=== PATIENT | male | born 1940 | race Caucasian/White ===

== ENCOUNTER → 2018-10-17 08:35 | Outpatient (CLI) | payer MEDICARE, OTHER, SELFPAY ==
[2018-10-17 09:47] LABS: Hematocrit 44.4 % (41-53); Hemoglobin 15.6 g/dL (13.5-17.5)
[2018-10-17 11:53] LABS: Blood Urea Nitrogen 12 mg/dL (9-20); Calcium 8.7 mg/dL (8.4-10.2); Carbon Dioxide 26 mmol/L (22-32); Chloride 102 mmol/L (98-107); Estimated Glomerular Filt Rate > 60.0 mL/min (>60); Glucose 118 mg/dL (80-110); HEMOLYSIS < 15 (0-50); Potassium 3.9 mmol/L (3.4-5.1); Sodium 138 mmol/L (137-145)
[2018-10-17 12:37] LABS: Vitamin D 25 Hydroxy (D3) 51.4 ng/mL (30.0-100.0)
== END ==
PROVIDERS: PCP Student in an Organized Health Care Education/Training Program; Visit Provider Student in an Organized Health Care Education/Training Program
DX: I10 Essential (primary) hypertension (principal); E55.9 Vitamin D deficiency, unspecified; I47.1 Supraventricular tachycardia
CPT/HCPCS: 36415; 80048; 82306; 85014; 85018

== ENCOUNTER → 2019-12-11 09:20 | Outpatient (CLI) | payer MEDICARE, OTHER, SELFPAY ==
[2019-12-11 10:44] LABS: BUN Creatinine Ratio 14.5 (6-22); Blood Urea Nitrogen 10 mg/dL (9-20); Carbon Dioxide 28 mmol/L (22-32); Chloride 100 mmol/L (98-107); Estimated Glomerular Filt Rate > 60.0 mL/min (>60); Glucose 121 mg/dL (80-110); HEMOLYSIS < 15 (0-50); Sodium 137 mmol/L (137-145)
[2019-12-11 10:51] LABS: Vitamin D 25 Hydroxy (D3) 62.1 ng/mL (30.0-100.0)
== END ==
PROVIDERS: PCP Student in an Organized Health Care Education/Training Program; Referring Provider Student in an Organized Health Care Education/Training Program; Visit Provider Student in an Organized Health Care Education/Training Program
DX: E55.9 Vitamin D deficiency, unspecified (principal); I10 Essential (primary) hypertension
CPT/HCPCS: 36415; 80048; 82306

== ENCOUNTER → 2020-01-30 08:59 | Outpatient (CLI) | payer MEDICARE, OTHER, SELFPAY ==
--- NOTE | 2020-01-30 | DI.RAD.S_ITS ---
PROCEDURE: XR LUMBAR SPINE 2-3V INDICATIONS: CHRONIC NECK PAIN AND BACK PAIN TECHNIQUE: 2 views of the lumbar spine were acquired. COMPARISON: [facility], , L-SPINE 2-3 VIEWS, 04/22/2014, 14:17. FINDINGS: Bones: No fracture or focal osseous destruction. Multilevel degenerative endplate sclerosis and spurring. Diffuse facet arthropathy. Straightening of the normal lordotic curvature. Grade 1 retrolisthesis of L2 on L3. Trace anterolisthesis of L4 on L5. Severe diffuse narrowing of the lumbar disc spaces with relative sparing at L1-L2. Scattered vascular calcifications present in the aorta. Dextroscoliosis noted centered at L2. Soft tissues: Overlying bowel gas pattern is normal. No suspicious soft tissue calcifications. IMPRESSION: Interval progression in diffuse lumbar spondylosis since 04/22/14. Dextrocurvature as before Dictated by: Kamar Sims M.D. on 01/30/2020 at 11:13 Approved by: Kamar Sims M.D. on 01/30/2020 at 11:15
--- NOTE | 2020-01-30 | DI.RAD.S_ITS ---
PROCEDURE: XR THORACIC SPINE 2V INDICATIONS: CHRONIC BACK PAIN TECHNIQUE: 2 views of the thoracic spine were acquired. COMPARISON: [facility], , THORACIC SPINE 3 VIEWS, 04/22/2014, 14:17. FINDINGS: Bones: No fractures or dislocations. No suspicious bony lesions. Multilevel degenerative endplate sclerosis and spurring. Diffuse facet arthropathy. Mild levocurvature of the lower thoracic spine. Soft tissues: No paravertebral stripe thickening. IMPRESSION: Diffuse thoracic degenerative changes and mild levocurvature. No interval progression since 04/22/14 Dictated by: Kamar Sims M.D. on 01/30/2020 at 11:12 Approved by: Kamar Sims M.D. on 01/30/2020 at 11:13
--- NOTE | 2020-01-30 | DI.RAD.S_ITS ---
PROCEDURE: XR CERVICAL SPINE 2V OR 3V INDICATIONS: CHRONIC NECK PAIN TECHNIQUE: 3 view(s) of the cervical spine were acquired. COMPARISON: [facility], , CERVICAL SPINE 2 OR 3 VIEWS, 04/22/2014, 14:17. FINDINGS: Bones: No fracture identified. Straightening of the normal lordotic curvature. Severe narrowing of the C4-C5 and C5-C6 disc spaces. Multilevel degenerative endplate sclerosis and spurring. Diffuse facet arthropathy. Grade 1 retrolisthesis of C4 on C5. Lateral curvature of the visualized cervical spine. Soft tissues: No prevertebral soft tissue swelling. IMPRESSION: Interval progression of multilevel cervical spondylosis most pronounced at C4-C5 and C5-C6. Diffuse facet arthropathy Straightening of the normal lordotic curvature. Dictated by: Kamar Sims M.D. on 01/30/2020 at 11:15 Approved by: Kamar Sims M.D. on 01/30/2020 at 11:17
== END ==
PROVIDERS: PCP Student in an Organized Health Care Education/Training Program; Referring Provider Chiropractor; Visit Provider Chiropractor
DX: M54.2 Cervicalgia (principal); M54.9 Dorsalgia, unspecified; M47.814 Spondylosis without myelopathy or radiculopathy, thoracic region; M47.816 Spondylosis without myelopathy or radiculopathy, lumbar region; M47.812 Spondylosis without myelopathy or radiculopathy, cervical region; G89.29 Other chronic pain
CPT/HCPCS: 72040; 72070; 72100

== ENCOUNTER → 2020-12-15 09:48 | Outpatient (CLI) | payer MEDICARE, OTHER, SELFPAY ==
--- NOTE | 2020-12-15 09:53 | DI.RAD.S_ITS ---
PROCEDURE: XR CERVICAL SPINE 2V OR 3V INDICATIONS: DJD of the neck, worsening right hand parasthesia TECHNIQUE: 3 view(s) of the cervical spine were acquired. COMPARISON: [facility], , XR CERVICAL SPINE 2V OR 3V, 01/30/2020, 9:00. FINDINGS: Bones: Vertebral body height and bone mineralization is maintained. Craniovertebral relationships normal. There is severe joint space narrowing and degenerative endplate changes noted at C 4 5 and C5-6 with associated arthropathy and straightening of the normal cervical lordosis. Minimal retrolisthesis noted at these levels as well, similar prior. Moderate disc space narrowing persists at C6-7 and C7-T1 Soft tissues: No prevertebral soft tissue swelling. IMPRESSION: Stable multilevel degenerative disc disease and arthropathy, most pronounced at C4-5 and C5-6 Dictated by: Derek Kendrick M.D. on 12/15/2020 at 11:30 Approved by: Derek Kendrick M.D. on 12/15/2020 at 11:33
[2020-12-15 10:42] LABS: BUN Creatinine Ratio 15.1 (6-22); Blood Urea Nitrogen 13 mg/dL (9-20); Carbon Dioxide 31 mmol/L (22-32); Chloride 101 mmol/L (98-107); Estimated Glomerular Filt Rate > 60.0 mL/min (>60); Glucose 126 mg/dL (80-110); HEMOLYSIS < 15 (0-50); Potassium 3.9 mmol/L (3.4-5.1); Sodium 137 mmol/L (137-145)
== END ==
PROVIDERS: PCP Student in an Organized Health Care Education/Training Program; Referring Provider Student in an Organized Health Care Education/Training Program; Visit Provider Student in an Organized Health Care Education/Training Program
DX: M47.812 Spondylosis without myelopathy or radiculopathy, cervical region (principal); R20.0 Anesthesia of skin; I10 Essential (primary) hypertension
CPT/HCPCS: 36415; 72040; 80048

== ENCOUNTER → 2021-03-20 08:27 | Outpatient (CLI) | payer MEDICARE, OTHER, SELFPAY ==
[2021-03-20 09:46] LABS: Cholesterol 160 mg/dL (140-199); HDL Cholesterol 54 mg/dL (40-60); LDL Cholesterol Calculated 92 mg/dL (<100); Triglycerides 68 mg/dL (35-150)
== END ==
PROVIDERS: PCP Student in an Organized Health Care Education/Training Program; Referring Provider Internal Medicine Cardiovascular Disease; Visit Provider Internal Medicine Cardiovascular Disease
DX: E78.5 Hyperlipidemia, unspecified (principal)
CPT/HCPCS: 36415; 80061

== ENCOUNTER → 2021-12-14 10:53 | Outpatient (CLI) | payer MEDICARE, OTHER, SELFPAY ==
[2021-12-14 12:30] LABS: Alanine Aminotransferase 25 IU/L (<50); Albumin 4.2 g/dL (3.5-5.0); Albumin Globulin Ratio 1.6 (1.0-2.8); Alkaline Phosphatase 85 U/L (38-126); Aspartate Aminotransferase 29 IU/L (17-59); BUN Creatinine Ratio 15.3 (6-22); Bilirubin Total 0.6 mg/dL (0.2-1.3); Blood Urea Nitrogen 13 mg/dL (9-20); Calcium 8.8 mg/dL (8.4-10.2); Carbon Dioxide 30 mmol/L (22-32); Chloride 104 mmol/L (98-107); Cholesterol 172 mg/dL (140-199); Estimated Glomerular Filt Rate > 60 mL/min (>60); Globulin 2.7 g/dL (1.7-4.1); Glucose 119 mg/dL (80-110); HDL Cholesterol 58 mg/dL (40-60); HEMOLYSIS < 15 (0-50); LDL Cholesterol Calculated 104 mg/dL (<100); Potassium 3.9 mmol/L (3.4-5.1); Sodium 138 mmol/L (137-145); Total Protein 6.9 g/dL (6.3-8.2); Triglycerides 50 mg/dL (35-150)
== END ==
PROVIDERS: PCP Student in an Organized Health Care Education/Training Program; Referring Provider Internal Medicine Cardiovascular Disease; Visit Provider Internal Medicine Cardiovascular Disease
DX: E78.5 Hyperlipidemia, unspecified (principal)
CPT/HCPCS: 36415; 80053; 80061

== ENCOUNTER → 2022-11-10 13:09 | Outpatient (CLI) | payer MEDICARE, OTHER, SELFPAY ==
--- NOTE | 2022-11-10 13:12 | DI.MRI.S_ITS ---
PROCEDURE: MR CERVICAL SPINE WO CON INDICATIONS: Radiculopathy, cervical region TECHNIQUE: Noncontrast sagittal T1 spin echo and T2 fast spin echo, sagittal STIR, foraminal oblique sagittal T2 fast spin echo, and axial gradient echo or T2 fast spin echo through the cervical spine. COMPARISON: [facility], CR, XR CERVICAL SPINE WITH OBLIQUES, 11/02/2022, 9:56. FINDINGS: Image quality: Excellent. Alignment and Curvature: There is minimal anterolisthesis at the C2-C3 level. There is minimal retrolisthesis at C4-C5 and C5-C6. Bone Marrow: Marrow demonstrates normal overall signal. Spinal Cord: There is increased T2 weighted signal seen focally at C4-C5 and C5-C6. Visualized spinal cord has normal size. No cerebellar tonsillar herniation. Paraspinous Soft Tissues: No paravertebral masses. Prevertebral soft tissues are normal in thickness. C2-C3: Moderate loss of disc height is seen. Loss of disc signal is seen. Reactive marrow endplate changes are seen, which are hyperintense on T1-weighted and T2-weighted imaging and most consistent with fatty metaplasia (Modic type II changes). Moderate generalized disc osteophyte complex is seen. There is mild right-sided and moderate left-sided facet hypertrophy at least moderate bilateral neural foraminal narrowing is seen. Mild to moderate central canal narrowing is seen. C3-C4: Mild loss of disc height is seen. Loss of disc signal is seen. Moderate generalized disc osteophyte complex is seen. There is mild right-sided and prominent left-sided facet hypertrophy. There is severe left-sided and moderate to severe right-sided neural foraminal narrowing. Moderate to severe central canal narrowing is seen, with associated ventral cord flattening. C4-C5: There is at least moderate loss of disc height and disc signal. Reactive marrow endplate changes are seen which are hypointense on T1-weighted imaging and hyperintense on T2 weighted imaging, which is most consistent with edema (Modic type I changes). At least moderate disc osteophyte complex is seen. There is a central disc osteophyte protrusion, with inferior migration of mild disc extrusion. There is a likely disc osteophyte protrusion within the right foraminal region, as on series 4, image 23. At least moderate facet hypertrophy can be seen. There is severe right-sided and moderate to severe left-sided neural foraminal narrowing. Severe central canal narrowing is seen, with associated mass effect upon the ventral spinal cord. C5-C6: Moderate to severe loss of disc height and disc signal can be seen. Reactive marrow endplate changes are seen which are hypointense on T1-weighted imaging and hyperintense on T2 weighted imaging, which is most consistent with edema (Modic type I changes). At least moderate disc osteophyte complex is seen, with a central/right disc osteophyte protrusion. Extruded disc material can be seen inferiorly. There is at least moderate bilateral facet hypertrophy. Moderate to severe bilateral neural foraminal narrowing can be seen. There is severe central canal narrowing, with associated cord flattening, as on series 4, image 26. C6-C7: At least moderate loss of disc height and disc signal can be seen. At least moderate disc osteophyte complex is seen, with a central disc osteophyte protrusion. Moderate facet joint hypertrophy is seen. Moderate to severe bilateral neural foraminal narrowing can be seen. At least moderate central canal narrowing is seen at this level. C7-T1: At least moderate loss of disc height and disc signal is seen. Moderate generalized disc osteophyte complex is seen. Mild to moderate facet hypertrophy is seen. There is moderate to severe left-sided and moderate right-sided neural foraminal narrowing. No central canal narrowing is seen. IMPRESSION: Multiple levels of significant cervical spine degenerative change can be seen, which are worst at C4-C5 and C5-C6. 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 Dictated by: Rafiq Martinez M.D. on 11/10/2022 at 14:53 Approved by: Rafiq Martinez M.D. on 11/10/2022 at 14:59
== END ==
PROVIDERS: PCP Student in an Organized Health Care Education/Training Program; Referring Provider Physical Medicine & Rehabilitation Pain Medicine; Visit Provider Physical Medicine & Rehabilitation Pain Medicine
DX: M47.22 Other spondylosis with radiculopathy, cervical region
CPT/HCPCS: 72141

== ENCOUNTER → 2023-02-14 10:21 | Outpatient (CLI) | payer MEDICARE, OTHER, SELFPAY ==
--- NOTE | 2023-02-14 | DI.CT.S_ITS ---
PROCEDURE: CT CERVICAL SPINE WO CON INDICATIONS: CERVICAL DISC DISORDER TECHNIQUE: Noncontrast 3 mm thick sections acquired from the skull base to the T4 level. Sagittal and coronal reformats were then constructed. For radiation dose reduction, the following was used: automated exposure control, adjustment of mA and/or kV according to patient size. COMPARISON: None. FINDINGS: Image quality: Excellent. Vertebral body height is preserved. No evidence of fracture. There is reversal normal cervical lordosis. Normal bone mineralization present. Craniovertebral relationships are normal. Grade 1 retrolisthesis noted at C4-5. Diffuse disc space narrowing and hypertrophic facet joints noted throughout the exam. At C2-3, disc space narrowing posterior disc osteophyte complex results in mild central and moderate bilateral foraminal stenosis At C3-4, hypertrophic facet and uncovertebral joints results in severe bilateral foraminal stenosis. Mild to moderate central stenosis. At C4-5, posterior osteophyte, hypertrophic facet and uncovertebral joints results in moderate central and severe bilateral foraminal stenosis. At C5-6, disc space narrowing with posterior osteophyte as well as hypertrophic facet and uncovertebral joints results in severe central and severe bilateral foraminal stenosis. At C6-7, disc space narrowing and hypertrophic uncovertebral joints results in moderate central stenosis. Severe bilateral foraminal stenosis. At C7-T1, disc space narrowing hypertrophic facet joints present. No central stenosis. Moderate bilateral foraminal stenosis IMPRESSION: 1. Multilevel degenerative disc disease and arthropathy results in varying degrees of central and foraminal stenosis including severe central and bilateral foraminal stenosis C5-6 Approved by: Derek Kendrick M.D. on 02/14/2023 at 17:15
== END ==
PROVIDERS: PCP Internal Medicine; Referring Provider Orthopaedic Surgery Orthopaedic Surgery of the Spine; Visit Provider Orthopaedic Surgery Orthopaedic Surgery of the Spine
DX: M50.022 Cervical disc disorder at C5-C6 level with myelopathy (principal); M50.122 Cervical disc disorder at C5-C6 level with radiculopathy; M48.02 Spinal stenosis, cervical region; G95.9 Disease of spinal cord, unspecified
CPT/HCPCS: 72125

== ENCOUNTER → 2023-02-24 08:47 | Outpatient (CLI) | payer MEDICARE, OTHER, SELFPAY ==
[2023-02-24 10:30] LABS: Add Manual Diff / Slide Review NO; Basophils Absolute Auto 0 /uL (0-100); Basophils Percent Auto 0.6 % (0-2); Eosinophils Absolute Auto 200 /uL (0-450); Eosinophils Percent Auto 2.6 % (2-4); Hematocrit 41.1 % (41-53); Hemoglobin 14.7 g/dL (13.5-17.5); Lymphocytes Absolute Auto 1500 /uL (1100-4500); Lymphocytes Percent Auto 22.3 % (25-40); Mean Corpuscular HGB Conc 35.8 % (30-36); Mean Corpuscular Volume 95.1 fL (80-100); Monocytes Absolute Auto 600 /uL (0-900); Monocytes Percent Auto 8.4 % (3-14); Neutrophils Absolute Auto 4400 /uL (1500-7000); Neutrophils Percent Auto 66.1 % (50-75); Platelet Count 254 X10^3/uL (150-400); Red Blood Cell Count 4.32 X10^6/uL (4.5-5.9); Red Cell Distribution Width 12.3 % (11.6-14.8); White Blood Cell Count 6.6 X10^3/uL (4.5-11.0)
[2023-02-24 10:37] LABS: Hemoglobin A1C% w Est Avg Glu 5.5 % (4.0-6.0)
[2023-02-24 10:49] LABS: BUN Creatinine Ratio 18.3 (6-22); Blood Urea Nitrogen 15 mg/dL (9-20); Calcium 8.9 mg/dL (8.4-10.2); Carbon Dioxide 28 mmol/L (22-32); Chloride 103 mmol/L (98-107); Estimated Glomerular Filt Rate > 60 mL/min (>60); Glucose 117 mg/dL (80-110); HEMOLYSIS 27 (0-50); Potassium 4.1 mmol/L (3.4-5.1); Sodium 137 mmol/L (137-145)
[2023-02-24 11:01] LABS: Vitamin D 25 Hydroxy (D3) > 126 ng/mL (30.0-100.0)
[2023-02-24 11:30] LABS: Vitamin B12 329 pg/mL (239-931)
== END ==
PROVIDERS: PCP Internal Medicine; Referring Provider Orthopaedic Surgery Orthopaedic Surgery of the Spine; Visit Provider Orthopaedic Surgery Orthopaedic Surgery of the Spine
DX: R73.9 Hyperglycemia, unspecified (principal); Z01.812 Encounter for preprocedural laboratory examination; E78.2 Mixed hyperlipidemia; I10 Essential (primary) hypertension; I47.1 Supraventricular tachycardia; Z01.818 Encounter for other preprocedural examination; E56.9 Vitamin deficiency, unspecified
CPT/HCPCS: 36415; 80048; 82306; 82607; 83036; 85025

== ENCOUNTER 2023-03-28 10:18 | Inpatient (IN) | payer MEDICARE, OTHER, SELFPAY ==
[2023-03-02 08:59] VITALS: BMI 24.3
[2023-03-28] VITALS (11 sets, daily range): BP systolic 124–166; BP diastolic 60–93; PULSE 51–101; RESP 10–17; TEMP 36.1–36.4; O2SAT 92–99; BMI 24.3
--- NOTE | 2023-03-28 11:10 | PM.PREOP ---
Pre-operative Note COVID-19 Criteria for continued procedure: Expected advancement of disease process, Possibility delay results in more complex future surgery or treatment, Increased loss of function, Continuing or worsening of significant or severe pain, Deterioration of the patient's condition or overall health and Delay expected to result in less-positive ultimate med/surg outcome Interval Note History & Physical reviewed/Exam performed by Physician: Yes Changes to H&P: No
[2023-03-28] MEDS: ACETAMINOPHEN 325 MG TABLET 650 MG PO (11:14)
[2023-03-28] MEDS: LACTATED RINGERS 1,000 ML 120 ML IV ×2 (11:15→12:35)
[2023-03-28] MEDS: CEFAZOLIN 2 GM/100 ML PREMIX 100 ML IV ×2 (11:45→20:18)
--- NOTE | 2023-03-28 12:04 | SUR.OPER ---
Supine on padded OR bed, head on gel donut, arms padded and papoosed, legs uncrossed, safety belt at thigh, tape over blanket over lower legs, legs under pillows, gel pad between feet.
[2023-03-28] MEDS: BUPIVACAINE 0.25% (PF) 10 ML, EPINEPHrine 0.15 MG INJ (12:11)
--- NOTE | 2023-03-28 13:43 | DI.RAD.S_ITS ---
PROCEDURE: XR CERVICAL SPINE 2V OR 3V INDICATIONS: C4-5. C5-6 ACDF TECHNIQUE: 2 spot fluoroscopic intraoperative images of the cervical spine were acquired. COMPARISON: [facility], CT, CT CERVICAL SPINE WO CON, 02/14/2023, 10:48. [facility], CR, XR CERVICAL SPINE 2V OR 3V, 12/15/2020, 9:54. [facility], CR, XR CERVICAL SPINE 2V OR 3V, 01/30/2020, 9:00. FINDINGS: Spot fluoroscopic images demonstrate postsurgical changes from anterior cervical disc fusion at C4-5 through C5-6 with anterior metal plate and screws and disc spacers. Hardware is in expected positions. IMPRESSION: Expected immediate postoperative appearance from ACDF at C4 through C6. Approved by: Demetri Benavides M.D. on 03/28/2023 at 14:36
--- NOTE | 2023-03-28 13:50 | P.OP_ITS ---
Operative Date/Time/Diagnoses Date of procedure: 03/28/23 Time of procedure: 11:30 Pre-op diagnosis: 1. C4-5, C5-6 spinal stenosis 2. 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 C4-5, C5-6 anterior cervical diskectomy and fusion 2. C4-5, C5-6 anterior interbody cage placement 3. C4-5, C5-6 anterior instrumentation with plate and screw placement in C4, C5 -C6 vertebrae 4. Utilization of microsurgical technique and operating microscope Same procedure as scheduled: Yes Indications: Patient has been having chronic neck pain and worsening cervical radiculopathy and myelopathy. Patient failed multiple conservative management with worsening pain weakness and numbness in his upper extremity. Patient has been having difficulty performing activity of daily living. After discussing risks benefits of treatment options, patient elected proceed with surgery. Surgeon: Amari Yung Circus Roustabout: Ana Riley Click Yes if Unassisted: No Anesthesia Type: General Operative Notes Closure Type: primary Specimen(s): none sent Prosthetic devices, grafts, tissues, transplants, or devices: Globus Extend Plate, Hedron C cages Estimated Blood Loss (mL): 5 Blood products transfused: none Procedure in detail: Patient was seen in the preoperative area. Risks and benefits of the surgery was discussed with the patient. Operative consent was obtained and placed in the chart. Patient was then taken to the operative room. Prophylactic antibiotic was given less than 0.5 hr prior to skin incision. General anesthesia was administered. Patient was placed into a supine position on her radiolucent table. Bilateral shoulders were taped down to allow proper C-arm imaging. Anterior cervical area was prepped and draped in a sterile fashion. Time-out was performed at this time. Using lateral C-arm imaging, the level between C4 and C6 was identified and marked on patient's neck. A oblique incision from midline towards medial border of sternocleidomastoid muscle was made. The platysma muscle was incised in line with skin incision. Metzenbaum scissor was used to develop the plane between the medial border of sternocleidomastoid and the strap muscles medially. The carotid sheath and its contents were identified and protected behind the hand-held retractor during the entire case. The plane between the carotid sheath and strap muscles was developed with Metzenbaum scissors. Dissection was made down to the level of the anterior cervical fascia. Longus colli muscle was incised on the anterior aspect of vertebral bodies bilaterally from C4-6. Spinal needle was placed into the C5-6 disc space and confirmed with lateral C-arm imaging. Using microsurgical technique and operative microscope, anterior cervical diskectomy was performed at C4-5, C5-6 level. This was done by removing the disc material, removing the anterior and posterior osteophytes posterior longitudinal ligaments along with performing bilateral foraminotomies at both levels. Patient was found to have severe central and foraminal stenosis at both levels. Patient's stenosis was fully decompressed after decompression was completed. After the diskectomy was completed, 2 anterior interbody cages were obtained. The cages were packed with globus DBM bone grafting material. One cage each along with the bone grafting material was then packed into the interbody spaces from C4-C6 with one cage into each interbody level. Patient has multiple large osteophytes in anterior and posterior aspects of vertebral bodies. The osteophytes was removed using Leksell rongeur pituitary and power drill. After the cages were placed, the anterior cervical plate was stabilized to the C4-6 vertebrae using 2 screws at each each level. Total 6 screws were placed. After confirming placement of the hardware with AP and lateral C-arm imaging, the screws were locked into the plate using the locking mechanism and torque limiting screwdriver. After the hardware was placed and confirmed with AP and lateral C-arm imaging, the wound was irrigated with sterile normal saline. The platysma muscle and the subcutaneous tissue was closed with 2-0 Vicryl. The skin was closed with 4-0 Monocryl and Steri-Strips. Patient tolerated the procedure well. Patient was transferred recovery room in stable condition. There were no complications. Complications: none Post-operative Condition: stable Disposition: PACU Plan for aftercare: Admit to inpatient hospital
--- NOTE | 2023-03-28 15:56 | PT.IIE ---
Current Diagnoses Other spondylosis with myelopathy, cervical region (03/28/23) Spinal stenosis, cervical region (03/28/23) Surgery Performed Operation Date: 03/28/23 12:15 Actual Procedures p C4-5, C5-6 ACDF with Anterior Instrumentation - Amari Yung MD Surgical History (Last Reviewed 03/24/23 @ 05:18 by Dylan Dempsey MD) History of tonsillectomy Medical History (Last Reviewed 03/24/23 @ 05:18 by Dylan Dempsey MD) Benign non-nodular prostatic hyperplasia without lower urinary tract symptoms (07/14/15) Essential hypertension (07/14/15) Glaucoma Mixed hyperlipidemia (07/14/15) PSVT (paroxysmal supraventricular tachycardia) Physical Therapy Inpatient Evaluation/Re-Eval M1 PT/OT-IP Prior Functional Status Start: 03/28/23 15:24 Freq: NEEDED Status: Active Protocol: Document 03/28/23 15:56 AW (Rec: 03/28/23 16:17 AW [id number]) Medical Review Prior Functional Status Medical History Reviewed Yes Communication WNL. Pt is an effective verbal communicator Mobility and Gait Independent without AD. Walks at least a mile daily. Admits to one fall on uneven ground in the past one year. Activities of Daily Living and IADL's Independent. Pt drives. He and his spouse split chores and housework Social History Household Members spouse Living Arrangements House Number of Floors (Floors) Two Floors Number of Stairs To Enter/Railing? Level entrance. No need to access the basement. 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 He has a walk in tub as well as a walk in shower. 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 His 30 yo grandson plans to move in soon and will be able to help as needed. M2 PT-IP Current Condition Start: 03/28/23 15:24 Freq: NEEDED Status: Active Protocol: Document 03/28/23 15:56 AW (Rec: 03/28/23 16:17 AW [id number]) Physical Therapy Current Condition Current Condition Evaluation Date 03/28/23 Treatment Diagnosis s/P C4-5 C5-6 ACDF; impaired mobility Onset Date 03/28/23 M3 PT-IP Subjective Start: 03/28/23 15:24 Freq: NEEDED Status: Active Protocol: Document 03/28/23 15:56 AW (Rec: 03/28/23 16:17 AW [id number]) Subjective Physical Therapy Visit Type Type Initial Evaluation Visit Start Time 15:30 Visit Stop Time 15:56 Total Visit Minutes 26 Notes Pt's spouse was present throughout this assessment Physical Therapy Visit Comments Patient Comments Pt denies pain, is willing to participate with PT Patient Goals 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 Therapy Pain Assessment Pain When Pain Assessed During Mobility Pain Present Pain Present Denied Pain M4 PT-IP Mobility and Gait Start: 03/28/23 15:24 Freq: NEEDED Status: Active Protocol: Document 03/28/23 15:56 AW (Rec: 03/28/23 16:17 AW [id number]) PT-Bed Mobility Assessment Supine to Sit Supine to Sit Standby Assistance Sit to Supine Sit to Supine Standby Assistance Scooting Scooting to Edge of Bed Standby Assistance PT-Transfer Assessment Sit to and From Stand Sit to and from Stand Contact Guard Assistance,1 Person Assistance,Use of Upper Extremities Equipment Transfer Assistive Device None,Gait Belt,Front Wheeled Walker Orthotic/Prosthetic Devices or Brace: Yes Transfers Transfer Destination Bed Transfer Technique Stand Step Pivot Transfer Ability Level of Assist Contact Guard Assistance,1 Person Assistance,Use of Upper Extremities Comments Mobility Comments Pt was found resting in bed with family at beside. BP 154/ 82 HR 57. He transitioned to sitting EOB with SBA. He complained of slight lightheadedness. VSS. Symptoms cleared and pt stood from the bed, requiring two attempts due to poorly controlled retro lean. Pt ultimately stood with no physical assist but did need CGA for stability. He walked toward the sink, reaching for environmental support along the way. Using mirror for visual feedback, PT instructed pt in soft collar management including donning and doffing. Pt asked to use the toilet. With FWW, he ambulated to the toilet as PT instructed him to push the walker over the top to improve stability. Pt was able to stand several minutes to void. Per pt, this is normal for him secondary to enlarged prostate. He then ambulated back to the sink where he was able to wash hands with good balance. He returned to the bed, rolling back toward supine SBA. Gait Assessment Gait Gait Assistance Required: Contact Guard Assist Distance (Feet) 15 Assistive Devices Assistive Device None,Gait Belt,Front Wheeled Walker Orthotic/Prosthetic Devices or Brace: Yes Gait Deviations General Gait Pattern Decreased Stride Length,Wide Based Gait Factors Limiting Gait Function Factors Limiting Gait Function Poor Balance Comments Gait Comments Pt did best with FWW but only managed short distances this date. Suspect pt was off balance due to late effects of anesthesia. Stair Climbing Assessment Comments Stair Climbing Comments Not assessed. PT-Balance Assessment Sitting Balance and Reactions Static Sitting Balance Ability Good Dynamic Sitting Balance Ability Good Standing Balance and Reactions Static Standing Balance Ability Fair Dynamic Standing Balance Ability Fair Device Used none, FWW M5 PT-IP Objective Assessments Start: 03/28/23 15:24 Freq: NEEDED Status: Active Protocol: Document 03/28/23 15:56 AW (Rec: 03/28/23 16:17 AW [id number]) Orientation Orientation/Cognition Level of Alertness Alert Orientation Name,Day of Week,Place, Situation Language Function Ability No Deficits Noted Safety Awareness Understands Safety Issues Memory Description No Deficits Noted Gross Range of Motion Upper Extremity ROM Assessment Within Functional Limits Lower Extremity ROM Assessment Within Functional Limits Strength Upper Extremity Strength Hand reduced sensation and strength (right more affected than left) Lower Extremity Strength Assessment Within Functional Limits Coordination Assessment Gross Coordination Gross Coordination WNL Assessment Finger to Nose Test Normal Performance Sensation Assessment Sensation Gross Sensation Right UE Impaired,Left UE Impaired Sensation Description Numbness,Tingling Muscle Tone Muscle Tone WNL Yes M6 PT-IP Treatment Start: 03/28/23 15:24 Freq: NEEDED Status: Active Protocol: Document 03/28/23 15:56 AW (Rec: 03/28/23 16:17 AW [id number]) Physical Therapy Treatment Education Education Provided Precautions,Post-Op Packet, Safety Brace Education Narayan Tam,Patient M7 PT-IP Assessment and Plan Start: 03/28/23 15:24 Freq: NEEDED Status: Active Protocol: Document 03/28/23 15:56 AW (Rec: 03/28/23 16:17 AW [id number]) PT Summary Assessment and Plan Potential Rehabilitation Potential Good Status of Condition at Evaluation Evolving Summary Impairments Pain,ROM,Strength,Balance, Sensation,Transfers,Gait Assessment Summary Devin is an 82 yo man seen for PT evaluation in the immediate post operative setting following C4-5 C 5-6 ACDF. PMH significant for HTN, hypercholesteremia, glaucoma, and BPH. Pt is independent in all regards at baseline, likes to walk about a mile daily. CLOF: Pt is aware of his cervical precautions and able to don/doff his soft collar with set up assist and verbal cues. He is mobilizing best with FWW and CGA. He reports mild lightheadedness but vital signs are stable. PT recommends discharge home with assist. Defer to OT for therapy recommendations but suspect pt would be well served by outpatient OT. Goals Bed Mobility Goal Independent Transfer Goal Independent,Cane Gait Goal Independent,Cane Gait Distance 200 Other Goals - transfers and gait with or without AD Days to Meet Goals 2 Frequency of Treatment Frequency Of Treatment Once a Day Treatment Plan Physical Therapy Treatment Plan Bed Mobility Training,Transfer Training,Gait Training, Therapeutic Exercise,Balance Retraining,Post Op Education, Discharge Planning,Hot or Cold Pack,Neuromuscular Re-ed, Coordination Retraining,Manual Therapy Other Recommendations and Next Treatment review precautions; progress Focus gait with or without AD depending on presentation Precautions Cervical Spine Precautions Soft Collar for Comfort,No Heavy Lifting,Log Roll Recommendations To Nursing Amount of Assist Needed 1 Person Assist Discharge Recommendations PT Discharge Recommendations Home with Assistance Other Discharge Recommendations defer to OT Transportation Needs at Discharge Private Vehicle
[2023-03-28] MEDS: LACTATED RINGERS 1,000 ML 125 ML IV (15:57)
[2023-03-28] MEDS: dilTIAZem CD 180 MG CAP PO (20:17)
[2023-03-28] MEDS: ATORVASTATIN 20 MG TABLET 10 MG PO (20:17)
[2023-03-28] MEDS: DORZOLAMIDE/TIMOLOL OPHTH 10 ML 1 DROPS EYE-BOTH (20:18)
[2023-03-29] MEDS: LACTATED RINGERS 1,000 ML 125 ML IV (00:22)
[2023-03-29 02:39] VITALS: BP 152/93; PULSE 91; RESP 19; TEMP 36.4; O2SAT 94
[2023-03-29] MEDS: CEFAZOLIN 2 GM/100 ML PREMIX 100 ML IV (04:24)
--- NOTE | 2023-03-29 07:46 | P.DS_ITS ---
History of Present Illness History of Present Illness Date Patient Seen: 03/29/23 Time Patient Seen: 07:47 Chief complaint: Cervical ACDF Narrative: Neck pain is mild. No shortness of breath. No difficulty swallowing. Patient has assistance at home Discharge Providers Provider Date of admission: 03/28/23 10:18 Discharge Date: 03/29/23 Primary care physician: Dylan Dempsey MD Consults: 03/28/23 14:45 Consult to Occupational Therapy Evaluate & Treat Comment: Physician Instructions: Evaluate and treat Consult to Physical Therapy Evaluate & Treat Comment: Physician Instructions: Evaluate and Treat Discharge provider: Clay Valerio PA-C Summary Hospital Course Discharge Diagnosis: 1. C4-5, C5-6 spinal stenosis 2. C4-5, C5-6 spondylosis with myelopathy Hospital Course: 1.? C4-5, C5-6 anterior cervical diskectomy and fusion 2.? C4-5, C5-6 anterior interbody cage placement 3.? C4-5, C5-6 anterior instrumentation with plate and screw placement in C4, C5-C6 vertebrae 4.? Utilization of microsurgical technique and operating microscope Patient admitted to the hospital for the above-mentioned procedure. Patient consented to the same. Patient underwent cervical fusion on March 28, 2023. Patient back in his room recovering well and is in stable condition. Patient will work with physical therapy. Discharge home today after physical therapy if safe for home environment. Exam Vital Signs (past 8 hours): - 03/29/23 02:39 Temperature 97.6 F Pulse Rate 91 H Respiratory Rate 19 Blood Pressure 152/93 H Pulse Oximetry 94 Oxygen Flow Rate 0 Oxygen Delivery Method Room Air Oxygen Flow Rate 0 Narrative Exam Narrative: 82-year-old male sitting up in bed in no apparent distress. Soft collar is in place. Dressing clean, dry and intact. Motor functions intact bilateral upper extremities. Sensation grossly intact to light touch bilateral upper extremity. Const General: cooperative and comfortable Nutritional Appearance: average body habitus Orientation: alert Resp Effort & Inspection: normal respiratory effort and able to speak in complete sentences [facility] Medical History Benign non-nodular prostatic hyperplasia without lower urinary tract symptoms (07/14/15) Essential hypertension (07/14/15) Glaucoma Mixed hyperlipidemia (07/14/15) PSVT (paroxysmal supraventricular tachycardia) Surgical History History of tonsillectomy Family History Mother Mental health problem Father No problems noted. 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: spouse Smoking Status: Never smoker alcohol intake: current Discharge Assessment & Plan Assessment and Plan Assessment: Patient progressing expected Plan of Treatment: Soft collar for comfort Limit bending, twisting, lifting Multimodal pain management Follow up Orthopedics in 2 weeks Discharge Plan Discharge Plan Patient Disposition: Home Discharge orders & Medications Prescriptions: New acetaminophen 325 mg Tablet 650 mg PO Q6H PRN (Reason: Fever/Mild Pain (1-3)) Qty: 60 0RF oxycodone 5 mg Tablet 5 mg PO Q3H PRN (Reason: Pain, Moderate (4-6)) Qty: 30 0RF Continued simvastatin [Zocor] 10 mg tablet 10 mg PO HS Qty: 90 0RF Rx Instructions: PT WILL NEED TO BE SEEN BEFORE NEXT FILL 11/30/21 losartan 100 mg tablet 100 mg PO DAILY Qty: 30 0RF Rx Instructions: APPT DUE W/PCP PRIOR TO END OF THIS RX/NEXT REFILL. PLEASE CALL TO SCHEDULE APPT. THANK YOU 09/14/21 latanoprost 0.005 % drops 1 drp EYE-BOTH DAILY aspirin 81 mg tablet,delayed release (DR/EC) 81 mg PO DAILY diltiazem HCl 180 mg capsule,extended release 24hr 180 mg PO BID dorzolamide-timolol 22.3-6.8 mg/mL drops 1 drp EYE-BOTH BID Follow up/Referrals: Dylan Dempsey MD [Primary Care Provider] - Amari Yung MD [Physician] - (2 weeks as scheduled) Diet/Activity/Treatments Diet: Diet as Tolerated Activity: Limit bending, twisting, lifting, soft collar for comfort Skin/Wound/Dressing Care Dressing: Keep dressing clean and dry Visit Report/Discharge Packet Instructions: DI for Prescription Opioid Use, DI for Anterior Cervical Discectomy and Fusion Stand Alone Forms: Patient Portal/API, Stroke Signs & Symptoms, Surgery Discharge Discharge Data Primary Care Provider: Dylan Dempsey V
[2023-03-29 08:00] VITALS: BP 175/90; PULSE 80; RESP 16; TEMP 36.5; O2SAT 94
[2023-03-29 08:28] VITALS: BP 158/101; PULSE 82
[2023-03-29] MEDS: LOSARTAN 50 MG TABLET 100 MG PO (08:28)
[2023-03-29] MEDS: dilTIAZem CD 180 MG CAP PO (08:28)
[2023-03-29] MEDS: ACETAMINOPHEN 325 MG TABLET 650 MG PO (08:30)
--- NOTE | 2023-03-29 08:58 | OT.IP.EVAL ---
Current Diagnoses Other spondylosis with myelopathy, cervical region (03/28/23) Spinal stenosis, cervical region (03/28/23) Surgery Performed Operation Date: 03/28/23 12:15 Actual Procedures p C4-5, C5-6 ACDF with Anterior Instrumentation - Amari Yung MD Past Medical History (Last Reviewed 03/29/23 @ 07:49 by Clay Valerio PA-C) Benign non-nodular prostatic hyperplasia without lower urinary tract symptoms (07/14/15) Essential hypertension (07/14/15) Glaucoma Mixed hyperlipidemia (07/14/15) PSVT (paroxysmal supraventricular tachycardia) Surgical History (Last Reviewed 03/29/23 @ 07:49 by Clay Valerio PA-C) History of tonsillectomy Occupational Therapy Inpatient Evaluation/Re-Eval M1 PT/OT-IP Prior Functional Status Start: 03/29/23 09:04 Freq: NEEDED Status: Active Protocol: Document 03/29/23 08:32 [facility] (Rec: 03/29/23 09:20 [facility] [id number]) Medical Review Prior Functional Status Medical History Reviewed Yes Communication WNL. Pt is an effective verbal communicator Mobility and Gait Independent without AD. Walks at least a mile daily. Admits to one fall on uneven ground in the past one year. Activities of Daily Living and IADL's Independent. Pt drives. He and his spouse split chores and housework. Due to his numbness in his hands , his assist with his buttons and FMS. Prior Functional Level (Other details) Pt's grandson to be moving in with him and his to assist with needs on May 09. Social History Household Members spouse Living Arrangements House Number of Floors (Floors) Two Floors Number of Stairs To Enter/Railing? Level entrance. No need to access the basement. 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 He has a walk in tub as well as a walk in shower. 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 His 30 yo grandson plans to move in soon and will be able to help as needed. M2 OT-IP Current Condition Start: 03/29/23 09:04 Freq: Status: Active Protocol: Document 03/29/23 08:32 [facility] (Rec: 03/29/23 09:20 [facility] [id number]) Occupational Therapy Current Condition Current Condition Evaluation Date 03/29/23 Treatment Diagnosis S/p C 4-5, C5-6 ACDF Diagnosis Onset Date 03/28/23 Post Operative Precautions Cervical Spine Precautions Soft Collar for Comfort,No Heavy Lifting,Log Roll M3 OT- IP Subjective and Pain Start: 03/29/23 09:04 Freq: Status: Active Protocol: Document 03/29/23 08:32 [facility] (Rec: 03/29/23 09:20 [facility] [id number]) OT- Subjective Occupational Therapy Visit Type Type Initial Evaluation Visit Start Time 08:32 Visit Stop Time 08:58 Total Visit Minutes 26 Occupational Therapy Visit Comments Patient Comments Pt agreed to get up. Patient/Caregiver Goals TO go home. OT Pain Assessment Pain When Pain Assessed At Rest Pain Present Pain Present Denied Pain M4 OT- IP ADL's Start: 03/29/23 09:04 Freq: Status: Active Protocol: Document 03/29/23 08:32 [facility] (Rec: 03/29/23 09:20 [facility] [id number]) OT [id number] General Evaluation Self-Feeding Ability Independent Comments OT Self-Feeding Comments Went over information for swallowing needs after ACDF with the pt. OT ADL-Grooming Comments OT Grooming Comments NOt performed. OT ADL-Oral Care Comments Oral Care Comments Not performed. OT ADL-Dressing Comments OT Dressing Comments Due to numbness in his right hand , pt not able to heidy/ doff the soft collar on his own and that his will have to assist him. Pt able to comfortable reach in other to do his LB dressing needs and was mindful of his head positioning. OT ADL-Toileting General Evaluation Toileting Ability Independent OT ADL-Bathing Comments OT Bathing Comments Pt has a walk in tub at home. Educated that the soft collar can be place in the dryer if wet. M5 OT- IP IADL's Start: 03/29/23 09:04 Freq: Status: Active Protocol: Document 03/29/23 08:32 [facility] (Rec: 03/29/23 09:20 [facility] [id number]) OT-Instrumental Activities of Daily Living Deficits IADL Deficits Identified Deficits Home Safety Awareness Awareness of Need for Assistance at Home Good Awareness Home Safety Comments Pt has a supportive at home. Meal Preparation Meal Preparation Caregiver Provides Assist Assistant Football Coach Assistant Football Coach Caregiver Provides Assist M6 OT- IP Functional Cognition Start: 03/29/23 09:04 Freq: Status: Active Protocol: Document 03/29/23 08:32 [facility] (Rec: 03/29/23 09:20 [facility] [id number]) Cognitive Factors Limiting Selfcare Function Cognitive Ability Level of Alertness Alert Patient Orientation Name,Place,Situation Attention Span Ability Capable of Focused Attention, Capable of Sustained Attention Ability to Follow Commands Able to Follow One Step Commands Safety Awareness Underestimates Need for Assistance Cognitive Comments Cognitive Assessment Comments Pt needing reminders to follow log rolling for bed mobility needs. Pt also insists that he will be able to walk his 7 lbs dog in a few days. Encouraged pt not to walk his dog until cleared. OT- Vision and Hearing OT- Hearing Assessment OT- Hearing Assessment WFL OT- Vision Assessment Visual Acuity Glasses All The Time M7 OT- IP Mobility and Balance Start: 03/29/23 09:04 Freq: Status: Active Protocol: Document 03/29/23 08:32 [facility] (Rec: 03/29/23 09:20 [facility] [id number]) OT- Bed Mobility Assessment Rolling Level of Assistance Standby Assistance Supine to Sit Supine to Sit Assist Standby Assistance Sit to Supine Sit to Supine Assist Standby Assistance Scooting Scooting to Edge of Bed Standby Assistance Scooting Up and Down in Bed Standby Assistance OT-Transfer Assessment Sit to and From Stand Sit to and from Stand Standby Assistance Transfers Transfer Ability Standby Assistance Technique Transfer Destination Bed,Toilet Transfer Technique Stand Step Pivot Devices Transfer Assistive Devices None,Gait Belt Comments Mobility Comments SBA with bed mobility after cues. Pt having slight unsteadiness on his feet and needing use of surfaces for his balance at times. At this time may be best for pt to use a cane versus FWW. OT- Balance Assessment Sitting Balance and Reactions Static Sitting Balance Ability Normal Dynamic Sitting Balance Ability Good Standing Balance and Reactions Static Standing Balance Ability Fair Dynamic Standing Balance Ability Fair M8 OT- IP Objective Assessments Start: 03/29/23 09:04 Freq: Status: Active Protocol: Document 03/29/23 08:32 [facility] (Rec: 03/29/23 09:20 [facility] [id number]) OT Strength Upper Extremity Strength Assessment Right Impaired OT- Coordination Assessment Comments Coordination Comments Decreased coordination for FMS with right hand. M9 OT- IP Assessment and Plan Start: 03/29/23 09:04 Freq: Status: Active Protocol: Document 03/29/23 08:32 [facility] (Rec: 03/29/23 09:20 [facility] [id number]) OT Summary Assessment and Plan Potential Rehabilitation Potential Excellent Analytic Complexity at Evaluation Low Summary OT Impairments Balance,Coordination, Functional Mobility,Bathing Progress Towards Goals Progressing Toward Goals Assessment Summary Pt Low complexity and main barrier are slightly unsteady on his feet and will benefit from outpt hand therapist to work with pt on increasing his strength and FMS. Pt has a supportive family to assist with his need at home. Pt given theraputty exercises for hand strengthening. Goals Grooming Goal Independent Dressing Goal Minimal Assistance Toileting Goal Independent Bathing Goal Independent Toilet Transfer Goal Independent Shower Transfer Goal Independent Days to Meet Goals 3 Frequency of Treatment Frequency Of Treatment Once a Day Treatment Plan OT Treatment Plan ADL Training,Functional Mobility,Therapeutic Exercises ,Patient/Family Education, Discharge Planning Discharge Recommendations OT Discharge Recommendations Home with Assistance, Outpatient PT Other Discharge Recommendations Pt to see hand therapist for right hand weakness and numbness. Transportation Needs at Discharge Private Vehicle
--- NOTE | 2023-03-29 09:08 | PT.IPTN ---
Current Diagnoses Other spondylosis with myelopathy, cervical region (03/28/23) Spinal stenosis, cervical region (03/28/23) Surgery Performed Operation Date: 03/28/23 12:15 Actual Procedures p C4-5, C5-6 ACDF with Anterior Instrumentation - Amari Yung MD Physical Therapy Treatment Note M2 PT-IP Current Condition Start: 03/28/23 15:24 Freq: NEEDED Status: Active Protocol: Document 03/28/23 15:56 AW (Rec: 03/28/23 16:17 AW [id number]) Physical Therapy Current Condition Current Condition Evaluation Date 03/28/23 Treatment Diagnosis s/P C4-5 C5-6 ACDF; impaired mobility Onset Date 03/28/23 M3 PT-IP Subjective Start: 03/28/23 15:24 Freq: NEEDED Status: Active Protocol: Document 03/29/23 09:18 TS (Rec: 03/29/23 09:28 TS [id number]) Subjective Physical Therapy Visit Type Type Treatment Note Visit Start Time 09:08 Visit Stop Time 09:17 Total Visit Minutes 9 Number of MASTER PLUMBER Visits 1 Physical Therapy Visit Comments Patient Comments Pt reports not having much pain, has some tightness in shoulders and irritation in throat. Pt agreeable to PT. Therapy Pain Assessment Pain When Pain Assessed During Mobility Pain Present Pain Present Pain Reported M4 PT-IP Mobility and Gait Start: 03/28/23 15:24 Freq: NEEDED Status: Active Protocol: Document 03/29/23 09:18 TS (Rec: 03/29/23 09:28 TS [id number]) PT-Bed Mobility Assessment Supine to Sit Supine to Sit Independent Sit to Supine Sit to Supine Independent Scooting Scooting to Edge of Bed Independent PT-Transfer Assessment Sit to and From Stand Sit to and from Stand Standby Assistance,1 Person Assistance,Use of Upper Extremities Equipment Transfer Assistive Device None,Gait Belt Orthotic/Prosthetic Devices or Brace: Yes Comments Mobility Comments Pt found resting in bed, agreeable to PT. He performed bed mobility Ind with use of BUE support pushing from bed. He performed sit to stand with no AD and ambulated ~220'SBA with no AD. Pt was educated on no heavy lifting and logroll for bed mobility. Pt was left back in bed with call light nearby, all needs met. Gait Assessment Gait Gait Assistance Required: Standby Assistance Distance (Feet) 220 Assistive Devices Assistive Device None,Gait Belt Orthotic/Prosthetic Devices or Brace: Yes Gait Deviations General Gait Pattern Decreased Stride Length Factors Limiting Gait Function Factors Limiting Gait Function Poor Balance PT-Balance Assessment Sitting Balance and Reactions Static Sitting Balance Ability Normal Dynamic Sitting Balance Ability Good Standing Balance and Reactions Static Standing Balance Ability Good Dynamic Standing Balance Ability Good Device Used none M5 PT-IP Objective Assessments Start: 03/28/23 15:24 Freq: NEEDED Status: Active Protocol: Document 03/28/23 15:56 AW (Rec: 03/28/23 16:17 AW [id number]) Orientation Orientation/Cognition Level of Alertness Alert Orientation Name,Day of Week,Place, Situation Language Function Ability No Deficits Noted Safety Awareness Understands Safety Issues Memory Description No Deficits Noted Gross Range of Motion Upper Extremity ROM Assessment Within Functional Limits Lower Extremity ROM Assessment Within Functional Limits Strength Upper Extremity Strength Hand reduced sensation and strength (right more affected than left) Lower Extremity Strength Assessment Within Functional Limits Coordination Assessment Gross Coordination Gross Coordination WNL Assessment Finger to Nose Test Normal Performance Sensation Assessment Sensation Gross Sensation Right UE Impaired,Left UE Impaired Sensation Description Numbness,Tingling Muscle Tone Muscle Tone WNL Yes M6 PT-IP Treatment Start: 03/28/23 15:24 Freq: NEEDED Status: Active Protocol: Document 03/29/23 09:18 TS (Rec: 03/29/23 09:28 TS [id number]) Physical Therapy Treatment Education Education Provided Precautions,Post-Op Packet, Safety M7 PT-IP Assessment and Plan Start: 03/28/23 15:24 Freq: NEEDED Status: Active Protocol: Document 03/29/23 09:18 TS (Rec: 03/29/23 09:28 TS [id number]) PT Summary Assessment and Plan Potential Rehabilitation Potential Good Summary Impairments Pain,ROM,Strength,Balance, Sensation,Transfers,Gait Progress Towards Goals Progressing Toward Goals Assessment Summary Devin is progressing well with his mobility. He is Ind for all bed mobility this session. He progressed his sit to stands with no AD and ambulation ~220'SBA with no AD . Pt was educated on precautions. PT is recommending pt return home with assist. Goals Bed Mobility Goal Independent Transfer Goal Independent,Cane Gait Goal Independent,Cane Gait Distance 200 Other Goals - transfers and gait with or without AD Days to Meet Goals 2 Frequency of Treatment Frequency Of Treatment Once a Day Treatment Plan Physical Therapy Treatment Plan Bed Mobility Training,Transfer Training,Gait Training, Therapeutic Exercise,Balance Retraining,Post Op Education, Discharge Planning,Hot or Cold Pack,Neuromuscular Re-ed, Coordination Retraining,Manual Therapy Precautions Cervical Spine Precautions Soft Collar for Comfort,No Heavy Lifting,Log Roll Recommendations To Nursing Amount of Assist Needed Standby Assistance Discharge Recommendations PT Discharge Recommendations Home with Assistance Other Discharge Recommendations defer to OT Transportation Needs at Discharge Private Vehicle
--- NOTE | 2023-03-29 11:48 | PC.NURSE ---
Pt is A&Ox4, VSS, afebrile on RA. BP initially high and scheduled antihypertensive medications administered. He is cleared for discharge home following PT/OT this a.m. ambulating with steady gait. Incision covered with c/d/i dressing and soft collar in place. He reports baseline numbness to R thumb, pointer finger and middle finger unchanged in comparison to before surgery. He verbalizes understanding of activity limitations, medications, s/sx of infection/complications as well as follow up appointment. He is escorted to private vehicle with daughter and son-in law via w/ch with all of his personal belongings at approximately 10:45 this morning for discharge home.
--- NOTE | 2023-03-29 12:01 | CM.DANOTE ---
Initial DCP Assessment Note: POLICE MATRON reviewed EMR and team rounds for pt's medical status and anticipated d/c needs. Met with pt bedside and introduced self and role. No anticipated d/c needs identified other than OP OT. D/C is planned for today. Payer: Medicare Surgeon: Aga Pt is a 82 year-old M with degenerative joint disease, right hand numbness, spondylosis w/myelopthy of the cervical region, and spinal stenosis of the cervical region. He shares that he has been having worsening neck pain over the last year, was able to get an Ortho eval recently and MRI was completed. Decision was made for cervical ACDF surgery. Pt presents as alert and oriented, states he is feeling ready to d/c home with transporting later this morning. No further d/c needs identified at this time. Discharge Planning/Care Management CM Discharge Assessment Start: 03/29/23 11:57 Freq: Status: Discharge Protocol: Document 03/29/23 11:58 DPL (Rec: 03/29/23 12:01 DPL [id number]) Discharge Planning Assessment Assigned Crystal Gazer EDWARD Elliott Advance Directives? Yes Advance Directives on File Yes History Provided By Patient,Medical Record Has Patient been admitted in last 30 No days? Prior Living Arrangements House Household Members spouse Type of transporation used prior to Drives own vehicle admit Independent with ADL's Yes Is patient alert and oriented? Yes DME Already Rented / Owned Elevated Toilet Seat,FWW / Walker,Cane Comment Shower grab bars Patient/Family Preference OP OT Therapy Comment POLICE MATRON explained the options for OP OT therapy. He expressed understanding, will plan to f/ u with Dr. Yung for OT recommendations post-discharge . Barriers to Discharge No Discharge Plan Home Community Services Occupational Therapy Transportation Arrangement Spouse Referrals Initiated None needed Whiteboard Updated in Patient Room with Yes name and ext. # of Crystal Gazer Review Status In Process Please Provide Date Initial DC 03/29/23 Assessment Was Performed Pre-Anesthesia Assessment Start: 03/02/23 08:55 Freq: Status: Discharge Protocol: Document 03/02/23 08:59 AK (Rec: 03/02/23 09:24 AK [id number]) Pre-Anesthesia Assessment Patient Information Reviewed Via Phone Assessment Assessment Completed With Patient,Spouse H&P Completed Within 30 Days 03/02/23 Not received Diagnostic Results BMP/CMP,CBC,EKG Primary Care Provider Dylan Dempsey Medical Clearance Received Yes Seen Specialist in Last 12 Months Yes Specialist Seen President & Founder Comment Medical clearance by Dr. Dempsey 12/23/22 Preferred Language Slovak Height 177.8 cm Weight 77.111 kg Body Mass Index (BMI) 24.3 Hearing Ability Hearing Impaired Visual Impairment Partially Limited Visual Assist Glasses Dentition Type Teeth, Natural Present,Dental Implants Barriers to Learning None Hx Anesthesia Reactions No Hx Family Anesthesia Reaction No Hx Malignant Hyperthermia No Hx Blood Transfusions No Hx Blood Transfusion Reaction No Anesthesia Review Requested No Bioinformatics Programmer No alcohol intake current alcohol intake frequency 0-2 drinks per day Alcohol Intake Frequency Other: 2 drinks daily Smoking Status Never smoker Substance Use Type does not use Pain Present Pain Reported Comment Left hand, intermittent shoulder pain Musculoskeletal Symptoms Joint Pain,Numbness History of Falling (Recent or History of Yes ) Comment Last fall early summer 2022 Patient is completely paralyzed or No completely immobile Ambulatory Aid None/bed rest/nurse assist Gait/Transferring Normal/bedrest/immobile Mental Status Oriented to own ability Comment Right hand weakness, numbness to fingers Is patient on oxygen? No Does patient have WEBSTER/SOB No Hx Sleep Apnea No Currently Taking a Beta Filomena No Can You Climb a Flight of Stairs Without Yes SOB Hx Chest Pain No Hx SOB No Hx Syncope or Dizziness No Anti-Coagulant Therapy Yes: Aspirin Has a President & Founder Yes: Last seen in 08/2022 in [place] Cardiac Testing Yes Hx Pacemaker/ICD No Pacemaker Rep Required? No Diet Type At Home Vegetarian,Lactose Intolerant Dysphagia No Gastrointestinal Symptoms None Comment Does eat fish Bladder Pattern Hesitancy Urinary Catheter Present No Hx Urinary Self Catheterization No Diabetes No HgbA1C 5.5 Date 02/24/23 Hx Drug Resistant Organism No Presence of External or Internal Medical No Devices Marital Status Lives With spouse Current Living Arrangements House Number of Floors (Floors) One Floor Number of Stairs To Enter/Railing? none Support System Child/Children,Spouse Does the Patient Have Assistance After Yes Surgery Patient Discharge Plan Description Return Home Feels Safe in Current Environment Yes Been Physically Hurt or Threatened By a No Person in Current Environment Do you have thoughts of harming yourself None or others? Are you currently considering suicide? No Do you have a plan to hurt yourself or No Plan others? Do You Have Any Spiritual Beliefs That No May Affect Your HC Choices? Do You Have Any Cultural Practices That No May Affect Your HC Choices? Who Can We Speak to About Patient's Care Mallorie Rudy [facility] Care Proxy/Next of Kin Mallorie Rudy Health Care Proxy Emergency Contact Name Mallorie Grant Emergency Contact Advance Directives? Yes Requested Patient Bring Advanced Yes Directives DOS Power of Template Maker No PAC Instructions Assistance for 24 hours post- op,Do not shave/clip surgical site,Medications to take/avoid ,Nasal antibiotic,No ETOH/ petroleum product on skin DOS, NPO,Post-op transportation,Pre -surgical wash,Sensory aids, Sturdy shoes/comfortable clothes,Do not bring valuables and remove jewelry
== END 2023-03-29 10:45 | disposition home or self-care (01) | DRG 472 ==
PROVIDERS: Admitting Provider Orthopaedic Surgery Orthopaedic Surgery of the Spine; PCP Internal Medicine; Referring Provider Student in an Organized Health Care Education/Training Program; Visit Provider Orthopaedic Surgery Orthopaedic Surgery of the Spine
PROC: 0RG20A0 Fusion of 2 or more Cervical Vertebral Joints with Interbody Fusion Device, Anterior Approach, Anterior Column, Open Approach (ICD-10-PCS; principal; 2023-03-28 12:15)
DX: M47.12 Other spondylosis with myelopathy, cervical region (principal); G95.20 Unspecified cord compression; M48.02 Spinal stenosis, cervical region; I10 Essential (primary) hypertension; M54.12 Radiculopathy, cervical region
CPT/HCPCS: 72040; 76000; 97116; 97162; 97165; 97530; C1713; J0171; J0330; J0690; J1100; J1170; J2405; J2704; J3010

== ENCOUNTER → 2023-10-07 10:47 | Outpatient (CLI) | payer MEDICARE, OTHER, SELFPAY ==
[2023-03-28 14:56] VITALS: BMI 24.3
--- NOTE | 2023-10-07 10:48 | DI.NM.S_ITS ---
PROCEDURE: NM EARNESTINE PERF SPECT R&S PHARM Rest and pharmacological stress myocardial perfusion SPECT with gated imaging and ejection fraction RADIOPHARMACEUTICAL: 11.9 mCi Tc-99m tetrafosmin IV at rest and 25.7 mCi Tc-99m tetrafosmin IV at peak effect of pharmacological stress. [id number] was performed. INDICATIONS: ATHEROSCLEROSIS OF CORONARY ARTERY/PAROX AFIB TECHNIQUE: Radiopharmaceutical was injected at peak stress test, and also at rest. SPECT images were obtained. SPECT myocardial perfusion images were displayed in short axis, horizontal long axis, and vertical long axis views. Gated images were reviewed using [employer] software. COMPARISON: None. CARDIAC STRESS: A pharmacologic stress test was performed under the supervision of an attending staff, using an infusion of lexican 0.4mg IV X1. Hemodynamic data: There is normal blood pressure and heart rate response to pharmacologic stress. Symptoms: The patient denied anginal chest pain. Aminophylline: none EKG: Atrial fibrillation with occasional PVCs present during the study. No diagnostic changes of ischemia; no ectopy. FINDINGS: Raw data: There is good myocardial uptake of radiotracer. No significant motion artifacts. Avtw-to-xdiou ratio is 0.35 (normal is less than 0.38 for tetrafosmin tracer). Left ventricle function: Gated images demonstrate normal left ventricular wall thickening. No segmental wall motion abnormalities. No transient ischemic dilation; TID is 0.98 (normal less than 1.3). Left ventricle resting end diastolic volume is 111 mL. Left ventricle stress ejection fraction is 74%; normal range is above 45%. Myocardial perfusion: There is a mildly intense inferior wall defect that worsens to moderate with stress suggesting prior non-transmural myocardial infarction with mild to moderate ischemia. There is a moderately intense reversible defect in the lateral wall that improves with prone images suggesting artifact with mild ischemia can't be excluded. SSS 9, SRS 4. IMPRESSION: Abnormal pharm nuclear stress test. 1) There is a mildly intense inferior wall defect that worsens to moderate with stress suggesting prior non-transmural myocardial infarction with mild to moderate ischemia. There is a moderately intense reversible defect in the lateral wall that improves with prone images suggesting artifact with mild ischemia can't be excluded. SSS 9, SRS 4. 2) Normal left ventricular size, wall motion, and systolic function (EF post stress 74%). 3) No diagnostic ST changes during the study. 4) No angina during the study. 5) No prior nuclear stress test available for comparison. Dictated by: Jordi Wolff MD on 10/07/2023 at 16:53 Approved by: Jordi Wolff MD on 10/07/2023 at 16:56
== END ==
PROVIDERS: PCP Internal Medicine; Referring Provider Internal Medicine Cardiovascular Disease; Visit Provider Internal Medicine Cardiovascular Disease
DX: I25.10 Atherosclerotic heart disease of native coronary artery without angina pectoris (principal); I47.10 Supraventricular tachycardia, unspecified; R94.39 Abnormal result of other cardiovascular function study
CPT/HCPCS: 78452; 93017; A9502; J2785

== ENCOUNTER → 2023-10-12 06:51 | Outpatient (CLI) | payer MEDICARE, OTHER, SELFPAY ==
[2023-03-28 14:56] VITALS: BMI 24.3
--- NOTE | 2023-10-12 06:52 | DI.ECHO.S_ITS ---
[place] [facility] +---------+ : : [address] : : : : [id number] : : : : Phone: [phone]+ Echocardiogram Report + + :Name: RACHEL VASQUEZ Study Date: 10/12/2023 Height: 70 in : :[facility] ReadingLocation: Weight: 170 lb : : Gender: Male BSA: 1.9 m2 : :: 1940 Age: 83 yrs BP: 156/84 mmHg: :Reason For Study: ATHEROSCLEROSIS OF CORONARY ARTERY : :Ordering Physician: Dario WOLFformed By: Xenia Mix : :Referring: REHAN WOLF : + + Interpretation Summary The patient was in sinus bradycardia with heart rates between 45-55 bpm during the exam. The ejection fraction is estimated to be 55-60%. Diastolic parameters suggest probable normal left ventricular diastolic function and normal filling pressures. The left atrium is mildly dilated. The right ventricle is normal in size and function. There is mild mitral regurgitation. Pulmonary artery pressures cannot be estimated because of the lack of a measurable TR jet velocity. Compared to the prior study dated 09/03/2016, no significant change. Procedure: A two-dimensional transthoracic echocardiogram with color flow and Doppler was performed. The study quality was technically adequate. Comparison is made with the echocardiogram of 09/03/2016. The patient was in sinus bradycardia with heart rates between 45-55 bpm during the exam. Left Ventricle: The left ventricle is normal in size and wall thickness. The ejection fraction is estimated to be 55-60%. Diastolic parameters suggest probable normal left ventricular diastolic function and normal filling pressures. Right Ventricle: The right ventricle is normal in size and function. Atria: The left atrium is mildly dilated. Right atrial size is normal. There is no Doppler evidence for an interatrial shunt. Mitral Valve: The mitral valve is normal. There is mild mitral regurgitation. Aortic Valve: The aortic valve is trileaflet. The aortic valve opens well. There is no aortic valve stenosis. No aortic regurgitation is present. Tricuspid Valve: The tricuspid valve is normal in structure and function. There is a trace or physiologic amount of tricuspid regurgitation. Pulmonary artery pressures cannot be estimated because of the lack of a measurable TR jet velocity. Pulmonic Valve: The pulmonic valve leaflets are thin and pliable; valve motion is normal. There is no pulmonic valvular regurgitation. Great Vessels: The aortic root is normal size. The dimensions of the ascending aorta are normal. The inferior vena cava was not well visualized. Pericardium/ Pleura There is no pericardial effusion. There is no pleural effusion. MMode/2D Measurements & Calculations LVIDd: 4.5 cm LVOT diam: 2.1 cm LVIDs: 3.0 cm Ao root diam: 3.8 cm FS: 34.2 % asc Aorta Diam: 3.7 cm IVSd: 1.00 cm Ao Arch Diam (Prox Trans): 3.0 cm LVPWd: 1.0 cm LV weir. diameter/BSA (cm/m^2): 2.3 LV sys. diameter/BSA (cm/m^2): 1.5 LA A2 area: 26.1 cm2 RA long axis: 5.4 cm LA A4 area: 19.2 cm2 RA area: 17.1 cm2 LA length (vol): 5.5 cm RA vol: 46.0 ml LA vol: 77.7 ml RA : 23.6 ml/m2 LA vol index: 39.9 ml/m2 RVD1 (basal): 4.0 cm RVD2 (mid): 3.2 cm TAPSE: 2.0 cm Doppler Measurements & Calculations Ao V2 max: 110.5 cm/sec LVOT Max Marcos: 92.0 cm/sec Ao V2 mean: 78.2 cm/sec LV V1 max P.4 mmHg Ao max P.9 mmHg LV V1 VTI: 23.0 cm Ao mean P.7 mmHg DAVID(I,D): 2.8 cm2 Ao V2 VTI: 28.0 cm DAVID(V,D): 2.8 cm2 sev ratio: 0.82 DAVID indexed to BSA (cm^2/m^2): 1.4 MV E max marcos: 95.2 cm/sec PA V2 max: 70.2 cm/sec MV A max marcos: 60.2 cm/sec PA V2 mean: 54.8 cm/sec MV E/A: 1.6 PA mean P.3 mmHg Med Peak E' Marcos: 7.2 cm/sec PA pr(Accel): 27.6 mmHg E/E' med: 13.2 Lat Peak E' Marcos: 10.7 cm/sec E/E' lat: 8.9 E/e' average: 11.1 MV dec time: 0.22 sec SV(LVOT): 78.0 ml Reading Physician:02:38 PM
== END ==
LOC: ECHO 06:51
PROVIDERS: PCP Internal Medicine; Referring Provider Internal Medicine Cardiovascular Disease; Visit Provider Internal Medicine Cardiovascular Disease
DX: I47.10 Supraventricular tachycardia, unspecified (principal); I25.10 Atherosclerotic heart disease of native coronary artery without angina pectoris; I34.0 Nonrheumatic mitral (valve) insufficiency
CPT/HCPCS: 93306

== ENCOUNTER → 2024-01-11 08:28 | Outpatient (CLI) | payer MEDICARE, OTHER, SELFPAY ==
[2023-03-28 14:56] VITALS: BMI 24.3
[2024-01-11 09:42] LABS: Cholesterol 143 mg/dL (140-199); HDL Cholesterol 54 mg/dL (40-60); LDL Cholesterol Calculated 77 mg/dL (<100); Triglycerides 58 mg/dL (35-150)
[2024-01-11 10:26] LABS: Vitamin B12 849 pg/mL (239-931)
== END ==
LOC: LAB 08:31
PROVIDERS: PCP Internal Medicine; Referring Provider Internal Medicine; Visit Provider Internal Medicine
DX: E78.2 Mixed hyperlipidemia (principal); E53.8 Deficiency of other specified B group vitamins
CPT/HCPCS: 36415; 80061; 82607

== ENCOUNTER → 2024-03-30 07:03 | Outpatient (CLI) | payer MEDICARE, OTHER, SELFPAY ==
[2023-03-28 14:56] VITALS: BMI 24.3
[2024-03-30 08:14] LABS: Hematocrit 40.5 % (41-53); Hemoglobin 14.2 g/dL (13.5-17.5); Mean Corpuscular Hemoglobin 33.5 PG (26-34); Mean Corpuscular Volume 95.6 fL (80-100); Platelet Count 301 X10^3/uL (150-400); Red Blood Cell Count 4.24 X10^6/uL (4.5-5.9); Red Cell Distribution Width 12.3 % (11.6-14.8)
[2024-03-30 08:52] LABS: Alanine Aminotransferase 18 IU/L (<50); Albumin 3.9 g/dL (3.5-5.0); Albumin Globulin Ratio 1.5 (1.0-2.8); Alkaline Phosphatase 87 U/L (38-126); Aspartate Aminotransferase 22 IU/L (17-59); Bilirubin Total 0.7 mg/dL (0.2-1.3); Blood Urea Nitrogen 16 mg/dL (9-20); Calcium 9.2 mg/dL (8.4-10.2); Carbon Dioxide 26 mmol/L (22-32); Chloride 103 mmol/L (98-107); Estimated Glomerular Filt Rate > 60 mL/min (>60); Globulin 2.6 g/dL (1.7-4.1); Glucose 128 mg/dL (80-110); HEMOLYSIS < 15 (0-50); Potassium 4.4 mmol/L (3.4-5.1); Sodium 135 mmol/L (137-145); Total Protein 6.5 g/dL (6.3-8.2)
[2024-03-30 09:23] LABS: Prostate Specific Antigen 6.09 ng/mL (0.10-4.00)
== END ==
PROVIDERS: PCP Internal Medicine; Referring Provider Internal Medicine; Visit Provider Internal Medicine
DX: I25.10 Atherosclerotic heart disease of native coronary artery without angina pectoris (principal); N40.0 Benign prostatic hyperplasia without lower urinary tract symptoms
CPT/HCPCS: 36415; 80053; 84153; 85027

== ENCOUNTER → 2024-06-15 08:40 | Outpatient (CLI) | payer MEDICARE, OTHER, SELFPAY ==
[2023-03-28 14:56] VITALS: BMI 24.3
[2024-06-15 09:52] LABS: Hemoglobin A1C% w Est Avg Glu 5.6 % (4.0-6.0)
[2024-06-15 11:07] LABS: Glucose 128 mg/dL (80-110)
[2024-06-16 09:36] LABS: PSA Free % 20.8 % (.); PSA, Total 5.3 ng/mL (0.0-4.0)
== END ==
PROVIDERS: PCP Internal Medicine; Referring Provider Internal Medicine; Visit Provider Internal Medicine
DX: R73.01 Impaired fasting glucose (principal); N40.0 Benign prostatic hyperplasia without lower urinary tract symptoms; R97.20 Elevated prostate specific antigen [PSA]
CPT/HCPCS: 36415; 82947; 83036; 84153; 84154

== ENCOUNTER → 2024-09-19 07:11 | Outpatient (CLI) | payer MEDICARE, OTHER, SELFPAY ==
[2023-03-28 14:56] VITALS: BMI 24.3
[2024-09-19 08:03] LABS: Alanine Aminotransferase 24 IU/L (<50); Albumin Globulin Ratio 1.5 (1.0-2.8); Alkaline Phosphatase 82 U/L (38-126); Aspartate Aminotransferase 23 IU/L (17-59); BUN Creatinine Ratio 14.6 (6-22); Bilirubin Total 0.8 mg/dL (0.2-1.3); Blood Urea Nitrogen 14 mg/dL (9-20); Carbon Dioxide 26 mmol/L (22-32); Chloride 102 mmol/L (98-107); Estimated Glomerular Filt Rate > 60 mL/min (>60); Globulin 2.7 g/dL (1.7-4.1); Glucose 132 mg/dL (80-110); HEMOLYSIS < 15 (0-50); Potassium 4.3 mmol/L (3.4-5.1); Sodium 136 mmol/L (137-145); Total Protein 6.7 g/dL (6.3-8.2)
== END ==
PROVIDERS: PCP Internal Medicine; Referring Provider Internal Medicine Cardiovascular Disease; Visit Provider Internal Medicine Cardiovascular Disease
DX: I47.10 Supraventricular tachycardia, unspecified (principal)
CPT/HCPCS: 36415; 80053

== ENCOUNTER 2024-11-03 09:35 | Emergency (ER) | payer MEDICARE, OTHER, SELFPAY ==
[2023-03-28 14:56] VITALS: BMI 24.3
[2024-11-03] VITALS (12 sets, daily range): BP systolic 159–176; BP diastolic 76–89; PULSE 66–87; RESP 16–22; TEMP 36.9; O2SAT 90–95; BMI 24.3
--- NOTE | 2024-11-03 09:53 | DI.RAD.S_ITS ---
PROCEDURE: XR CHEST 2V INDICATIONS: [id number]/rhonchi bases TECHNIQUE: 2 views of the chest were acquired. COMPARISON: [facility], , CHEST 1 VIEW, 06/15/2016, 14:14. FINDINGS: Surgical changes and devices: None. Lungs and pleura: Lungs are clear. No pleural effusions or pneumothorax. Mediastinum: Mediastinal contours are normal. Heart size is normal. Bones and chest wall: No suspicious bony abnormalities. Soft tissues appear unremarkable. IMPRESSION: No acute cardiopulmonary abnormality is seen. Approved by: Derek Kendrick M.D. on 11/03/2024 at 10:04
--- NOTE | 2024-11-03 10:04 | ED.URI ---
HPI - URI/Sore Throat General Chief Complaint: Upper Respiratory Symptoms Stated Complaint: Respriatory illness for 30days; congestion etc. Time Seen by Provider: 11/03/24 09:54 History of Present Illness HPI Narrative: Patient is a 84-year-old male history of tachycardia followed by Dr. Goldman, on diltiazem, hypertension hyperlipidemia presenting today with cough. He reports that he does not seem to be able to get over this cold. He feels like he was turning a corner and then his cough is back. He denies any kind of significant shortness of breath. But reports that every time he takes a deep breath he does cough. She sometimes has a yellow productive sputum. He denies any lower extremity swelling no fever or chills no sore throat no abdominal pain nausea or vomiting. He denies any kind of chest pain or palpitations. Related Data Home Medications Medication Instructions Recorded Confirmed aspirin 81 mg tablet,delayed 81 mg PO DAILY 12/17/21 03/28/24 release diltiazem HCl 180 mg 180 mg PO BID 12/17/21 03/28/24 capsule,extended release 24 hr latanoprost 0.005 % eye drops 1 drp EYE-BOTH DAILY 12/17/21 03/28/24 dorzolamide 22.3 mg-timolol 6.8 1 drp EYE-BOTH BID 12/23/22 03/28/24 mg/mL eye drops Vitamin b12 PO DAILY 03/28/24 Previous Rx's Medication Instructions Recorded losartan 100 mg tablet 100 mg PO DAILY #30 tabs 11/30/21 simvastatin 10 mg tablet (Zocor) 10 mg PO HS #90 tabs 11/30/21 acetaminophen 325 mg tablet 650 mg (2 x 325 mg) PO Q6H PRN 03/29/23 Fever/Mild Pain (1-3) #60 tabs oxycodone 5 mg tablet 5 mg PO Q3H PRN Pain, Moderate 03/29/23 (4-6) #30 tabs albuterol sulfate 90 mcg/actuation 2 puff inhalation Q4-6H PRN 11/03/24 aerosol inhaler shortness of breath or wheezing #8.5 grams doxycycline hyclate 100 mg capsule 100 mg PO BID #14 caps 11/03/24 prednisone 20 mg tablet 40 mg (2 x 20 mg) PO DAILY #10 tabs 11/03/24 Allergies Allergy/AdvReac Type Severity Reaction Status Date / Time No Known Drug Allergies Allergy Verified 03/28/24 07:52 Patient History Medical History Impaired fasting glucose Elevated PSA B12 deficiency Coronary artery disease Glaucoma Mixed hyperlipidemia (07/14/15) Essential hypertension (07/14/15) Benign non-nodular prostatic hyperplasia without lower urinary tract symptoms (07/14/15) PSVT (paroxysmal supraventricular tachycardia) Surgical History History of tonsillectomy Family History Mother Mental health problem Father No problems noted. 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 HEENT: Head atraumatic,EOMI, pupils reactive, face symmetric, moist mucous membranes CARDIOVASCULAR: Regular rate and rhythm without murmurs, rubs or gallops. RESPIRATORY: Breath sounds equal bilaterally, no wheezes rales or rhonchi. ABDOMEN: Soft, nontender. Normoactive bowel sounds all 4 quadrants. No guarding or rebound. EXTREMITIES: Normal range of motion, no clubbing or edema. Neurovascularly intact NEUROLOGICAL: Alert and oriented x4.Normal gait and speech. Cranial nerves II through XII grossly intact. SKIN: Warm, dry, no laceration, no petechiae, no rashes or lesions. Course Orders Ordered: ED Orders 11/03/24 09:48 Covid-19 + FLU A/B + RSV - PCR Stat 11/03/24 09:53 XR chest 2V Stat 11/03/24 10:14 EKG-12 Lead Stat 11/03/24 10:20 Complete Blood Count AUTO DIFF Stat Comprehensive Metabolic Panel Stat D Dimer Stat Lipase Stat Troponin & CK Cardiac Panel Stat Discontinued Medications Albuterol (Albuterol Hfa Prepack) 1 box MISC DIRECTED ONE Stop: 11/03/24 13:14 Last Admin: 11/03/24 13:46 Dose: 1 box Documented By: MIGEL Albuterol/Ipratropium (Albuterol/Ipratropium 3 Ml Ampul) 3 ml INH NOW ONE Stop: 11/03/24 11:39 Last Admin: 11/03/24 12:20 Dose: 3 ml Documented By: EMELYN Albuterol/Ipratropium (Albuterol/Ipratropium 3 Ml Ampul) 3 ml INH NOW ONE Stop: 11/03/24 12:51 Last Admin: 11/03/24 12:55 Dose: 3 ml Documented By: MIGEL Methylprednisolone (Methylprednisolone 125 Mg/2 Ml Vial) 125 mg IV NOW ONE Stop: 11/03/24 13:14 Last Admin: 11/03/24 13:47 Dose: 125 mg Documented By: MIGEL Vital Signs Vital signs: Vital Signs - 8 hr 11/03/24 09:48 11/03/24 09:48 11/03/24 09:51 Temperature 98.4 F Pulse Rate 73 74 Respiratory Rate 16 Blood Pressure 176/86 H 176/84 H Pulse Oximetry 93 95 Oxygen Delivery Method Room Air Oxygen Flow Rate 11/03/24 10:00 11/03/24 10:30 11/03/24 11:00 Temperature Pulse Rate 67 68 66 Respiratory Rate 22 19 Blood Pressure Pulse Oximetry 92 90 L 90 L Oxygen Delivery Method Oxygen Flow Rate 11/03/24 11:30 11/03/24 12:00 11/03/24 12:16 Temperature Pulse Rate 73 74 77 Respiratory Rate 19 20 16 Blood Pressure Pulse Oximetry 90 L 92 91 Oxygen Delivery Method Room Air Oxygen Flow Rate 0 11/03/24 12:30 11/03/24 12:34 11/03/24 12:34 Temperature Pulse Rate 78 76 Respiratory Rate 21 Blood Pressure 159/77 H Pulse Oximetry 92 92 Oxygen Delivery Method Oxygen Flow Rate 11/03/24 13:00 11/03/24 13:00 11/03/24 13:53 Temperature Pulse Rate 79 87 Respiratory Rate 19 Blood Pressure 159/76 H Pulse Oximetry 94 92 Oxygen Delivery Method Oxygen Flow Rate 11/03/24 13:53 Temperature Pulse Rate Respiratory Rate Blood Pressure 162/89 H Pulse Oximetry Oxygen Delivery Method Oxygen Flow Rate [facility] - URI/Sore Throat Lab Data 11/03/24 10:20 11/03/24 10:20 Labs: Lab Results 11/03/24 11/03/24 Range/Units 09:48 10:20 WBC 9.4 (4.5-11.0) X10^3/uL RBC 4.22 L (4.5-5.9) X10^6/uL Hgb 14.4 (13.5-17.5) g/dL Hct 40.5 L (41-53) % MCV 95.9 (80-100) fL MCH 34.2 H (26-34) PG MCHC 35.6 (30-36) % RDW 12.3 (11.6-14.8) % Plt Count 253 (150-400) X10^3/uL Neut % (Auto) 74.4 (50-75) % Lymph % (Auto) 11.4 L (25-40) % [place] % (Auto) 12.2 (3-14) % Eos % (Auto) 1.8 L (2-4) % Baso % (Auto) 0.2 (0-2) % Neut # (Auto) 7000 (2943-7035) /uL Lymph # (Auto) 1100 (6433-4457) /uL [place] # (Auto) 1100 H (0-900) /uL Eos # (Auto) 200 (0-450) /uL Baso # (Auto) 0 (0-100) /uL D-Dimer 544 H (<500) ng/ml Sodium 135 L (137-145) mmol/L Potassium 3.8 (3.4-5.1) mmol/L Chloride 99 (98-107) mmol/L Carbon Dioxide 28 (22-32) mmol/L BUN 13 (9-20) mg/dL Creatinine 1.09 (0.66-1.25) mg/dL Estimated GFR > 60 (>60) mL/min BUN/Creatinine Ratio 11.9 (6-22) Glucose 134 H (70-99) mg/dL Calcium 9.1 (8.4-10.2) mg/dL Total Bilirubin 1.5 H (0.2-1.3) mg/dL AST 29 (17-59) IU/L ALT 22 (<50) IU/L Alkaline Phosphatase 88 (38-126) U/L Total Creatine Kinase 90 (55-170) U/L Troponin I 0.012 (0.01-0.034) ng/mL Total Protein 7.1 (6.3-8.2) g/dL Albumin 4.0 (3.5-5.0) g/dL Globulin 3.1 (1.7-4.1) g/dL Albumin/Globulin Ratio 1.3 (1.0-2.8) Lipase 47 (23-300) U/L SARS-CoV-2 (PCR) Negative (Negative) Influenza A (RT-PCR) Flu a negative (NEGATIVE) Influenza B (RT-PCR) Flu b negative (NEGATIVE) RSV (PCR) Negative (Negative) Imaging Data Chest x-ray: Radiologist's Impression: PROCEDURE: XR CHEST 2V INDICATIONS: keibuv1iu/rhonchi bases TECHNIQUE: 2 views of the chest were acquired. COMPARISON: [facility], , CHEST 1 VIEW, 06/15/2016, 14:14. FINDINGS: Surgical changes and devices: None. Lungs and pleura: Lungs are clear. No pleural effusions or pneumothorax. Mediastinum: Mediastinal contours are normal. Heart size is normal. Bones and chest wall: No suspicious bony abnormalities. Soft tissues appear unremarkable. IMPRESSION: No acute cardiopulmonary abnormality is seen. Approved by: Derek Kendrick M.D. on 11/03/2024 at 10:04 ECG Data Attestation: I personally reviewed and interpreted this ECG as follows: Interpretation: Normal sinus rhythm rate 69 DE interval 278 QRS [address] changes T-wave inversion noted in lead 3, previous EKGs in [facility] Narrative Medical decision making narrative: Patient 84-year-old male presenting today with ongoing cough congestion for at least 30 days or more. He does have a history of a tachycardia on diltiazem and aspirin but reports he has not had any kind of episodes for a number of years. On exam he does have a cough with deep breathing but breath sounds are clear noted that his oxygen level is 92-95% on room air at rest slightly shallow breathing. He was given some albuterol which does seem to help his breathing and opens his lungs. Blood work has been reviewed No leukocytosis no anemia D-dimer 544 Troponin negative CMP does not show any electrolyte abnormality no IBAN Bilirubin slightly elevated 1.5 with a normal AST normal ALT and normal lipase. Chest x-ray does not show any acute cardiopulmonary process EKGs does not show any acute ischemia Patient was given Solu-Medrol DuoNebs here in the ED reports feeling little bit better. D-dimer age correct in his negative for age it was time does not need CT imaging. He does not have evidence of pneumonia but does have a yellow cough and cough ongoing for more than 1 month. He was no evidence of sepsis. Breathing did improve with bronchodilators. We will put him on course of albuterol prednisone and antibiotic. He ambulated here without any oxygen desaturation. Overall feeling like he was able to go home. Discussion with him about when to return to ED. Discharge Plan Departure Patient Disposition: Home Clinical Impression: Atypical pneumonia Instructions: Atypical Pneumonia Activity Restrictions/Additional Instructions: *You have been diagnosed with atypical pneumonia *What to do: At this time we will treat you for an atypical pneumonia. Please start feeling better *Continue to take medications as directed Doxycycline 100 mg twice a day for 7 days Prednisone 40 mg once a day for 5 days Albuterol inhaler 1-2 puffs every 4 hours if needed for cough or shortness of *Follow up with your primary care provider in 2-3 days or call [phone] *Return to ER if you should have increasing cough shortness of breath confusion or any new, worsening or concerning symptoms Prescriptions: New doxycycline hyclate 100 mg capsule 100 mg PO BID Qty: 14 0RF prednisone 20 mg tablet 40 mg PO DAILY Qty: 10 0RF albuterol sulfate 90 mcg/actuation HFA aerosol inhaler 2 puff INHALATION Q4-6H PRN (Reason: shortness of breath or wheezing) Qty: 8.5 0RF No Action simvastatin [Zocor] 10 mg tablet 10 mg PO HS Qty: 90 0RF Rx Instructions: PT WILL NEED TO BE SEEN BEFORE NEXT FILL 11/30/21 losartan 100 mg tablet 100 mg PO DAILY Qty: 30 0RF Rx Instructions: APPT DUE W/PCP PRIOR TO END OF THIS RX/NEXT REFILL. PLEASE CALL TO SCHEDULE APPT. THANK YOU 09/14/21 latanoprost 0.005 % drops 1 drp EYE-BOTH DAILY aspirin 81 mg tablet,delayed release (DR/EC) 81 mg PO DAILY diltiazem HCl 180 mg capsule,extended release 24hr 180 mg PO BID dorzolamide-timolol 22.3-6.8 mg/mL drops 1 drp EYE-BOTH BID Vitamin b12 1,000 mcg tablet PO DAILY acetaminophen 325 mg Tablet 650 mg PO Q6H PRN (Reason: Fever/Mild Pain (1-3)) Qty: 60 0RF oxycodone 5 mg Tablet 5 mg PO Q3H PRN (Reason: Pain, Moderate (4-6)) Qty: 30 0RF Referrals: Dylan Dempsey MD [Primary Care Provider] - Stand Alone Forms: Patient Portal/API/Survey
--- NOTE | 2024-11-03 10:32 | EKG_ITS ---
[facility] [address] [place] [address] Test Date: 2024-11-03 Pat Name: Devin Grant Department: [facility] Room: Gender: Male [employer]: : 1940 Requested By: Order Number: [id number] Reading MD: Coleman López MD Measurements Intervals [place] Rate: 69 P: 56 UT: 278 QRS: -8 QRSD: 96 T: 6 QT: 392 QTc: 420 Interpretive Statements Sinus rhythm with 1st degree AV block Electronically Signed On 11-03-2024 14:08:27 PDT by Coleman López MD
[2024-11-03 10:39] LABS: Add Manual Diff / Slide Review NO; Basophils Absolute Auto 0 /uL (0-100); Basophils Percent Auto 0.2 % (0-2); Eosinophils Absolute Auto 200 /uL (0-450); Eosinophils Percent Auto 1.8 % (2-4); Hematocrit 40.5 % (41-53); Hemoglobin 14.4 g/dL (13.5-17.5); Lymphocytes Absolute Auto 1100 /uL (1100-4500); Lymphocytes Percent Auto 11.4 % (25-40); Mean Corpuscular HGB Conc 35.6 % (30-36); Mean Corpuscular Hemoglobin 34.2 PG (26-34); Mean Corpuscular Volume 95.9 fL (80-100); Monocytes Absolute Auto 1100 /uL (0-900); Monocytes Percent Auto 12.2 % (3-14); Neutrophils Absolute Auto 7000 /uL (1500-7000); Neutrophils Percent Auto 74.4 % (50-75); Platelet Count 253 X10^3/uL (150-400); Red Blood Cell Count 4.22 X10^6/uL (4.5-5.9); Red Cell Distribution Width 12.3 % (11.6-14.8); White Blood Cell Count 9.4 X10^3/uL (4.5-11.0)
[2024-11-03 11:16] LABS: Alanine Aminotransferase 22 IU/L (<50); Albumin Globulin Ratio 1.3 (1.0-2.8); Alkaline Phosphatase 88 U/L (38-126); Aspartate Aminotransferase 29 IU/L (17-59); BUN Creatinine Ratio 11.9 (6-22); Bilirubin Total 1.5 mg/dL (0.2-1.3); Blood Urea Nitrogen 13 mg/dL (9-20); Calcium 9.1 mg/dL (8.4-10.2); Carbon Dioxide 28 mmol/L (22-32); Chloride 99 mmol/L (98-107); Creatine Kinase 90 U/L (55-170); Estimated Glomerular Filt Rate > 60 mL/min (>60); Globulin 3.1 g/dL (1.7-4.1); Glucose 134 mg/dL (70-99); HEMOLYSIS < 15 (0-50); Lipase 47 U/L (23-300); Potassium 3.8 mmol/L (3.4-5.1); Sodium 135 mmol/L (137-145); Total Protein 7.1 g/dL (6.3-8.2)
[2024-11-03 11:27] LABS: Troponin I 0.012 ng/mL (0.01-0.034)
[2024-11-03 11:39] LABS: Influenza A - CEPHEID Flu A NEGATIVE (NEGATIVE); Influenza B - CEPHEID Flu B NEGATIVE (NEGATIVE); Respiratory Syncytial Virus Negative (Negative)
--- NOTE | 2024-11-03 11:53 | PC.NURSE ---
patient reports sinus pressure symptoms.
[2024-11-03] MEDS: ALBUTEROL/IPRATROPIUM 3 ML AMPUL INH ×2 (12:20→12:55)
[2024-11-03 12:48] LABS: COVID-19 CEPHEID 4-PLEX PCR Negative (Negative)
[2024-11-03 12:51] LABS: D Dimer 544 ng/ml (<500)
--- NOTE | 2024-11-03 13:33 | PC.NURSE ---
Dr Salmon ordered ambulation trial with pulse ox, patient saturated around 91-92% with heart rate in the 90's. Patient denies any dizziness or pain just stated that they felt tired, patient walked with a steady gait. Provider Luis Antonio is aware
[2024-11-03] MEDS: ALBUTEROL HFA PREPACK 1 BOX MISC (13:46)
[2024-11-03] MEDS: methylPREDNISolone 125 MG/2 ML VIAL IV (13:47)
== END 2024-11-03 13:58 | disposition home or self-care (01) ==
PROVIDERS: Emergency Provider Emergency Medicine; PCP Internal Medicine
DX: J18.9 Pneumonia, unspecified organism (principal); I10 Essential (primary) hypertension; Z86.79 Personal history of other diseases of the circulatory system
CPT/HCPCS: 0241U; 36415; 71046; 80053; 82550; 83690; 84484; 85025; 85379; 93005; 93010; 94640; 96374; 99284; J2919

== ENCOUNTER → 2025-04-29 09:10 | Outpatient (CLI) | payer MEDICARE, OTHER, SELFPAY ==
[2023-03-28 14:56] VITALS: BMI 24.3
[2025-04-29 10:00] LABS: Hemoglobin A1C% w Est Avg Glu 5.8 % (4.0-6.0)
[2025-04-29 10:07] LABS: Blood Urea Nitrogen 14 mg/dL (9-20); Calcium 9.3 mg/dL (8.4-10.2); Carbon Dioxide 27 mmol/L (22-32); Chloride 102 mmol/L (98-107); Cholesterol 157 mg/dL (140-199); Estimated Glomerular Filt Rate > 60 mL/min (>60); Glucose 138 mg/dL (70-99); HDL Cholesterol 64 mg/dL (40-60); HEMOLYSIS < 15 (0-50); Potassium 4.4 mmol/L (3.4-5.1); Sodium 137 mmol/L (137-145); Triglycerides 76 mg/dL (35-150)
[2025-04-29 10:35] LABS: Prostate Specific Antigen 5.36 ng/mL (0.10-4.00)
[2025-04-29 10:52] LABS: Vitamin B12 854 pg/mL (239-931)
== END ==
PROVIDERS: PCP Internal Medicine; Referring Provider Internal Medicine; Visit Provider Internal Medicine
DX: R73.01 Impaired fasting glucose (principal); E78.2 Mixed hyperlipidemia; R97.20 Elevated prostate specific antigen [PSA]; E53.8 Deficiency of other specified B group vitamins
CPT/HCPCS: 36415; 80048; 80061; 82607; 83036; 84153; 84450